=== PATIENT | female | born 1965 | race Caucasian/White ===

== ENCOUNTER 2017-02-11 12:38 | Day surgery (SDC) | payer OTHER ==
[2017-02-11 13:19] LABS: HEMOGLOBIN 16.3 gm/dl (12.3-15.3); RED BLOOD COUNT 5.42 M/UL (4.00-5.10); WHITE BLOOD COUNT 9.8 K/UL (4.5-11.0)
[2017-02-11] MEDS ORDERED: LAMICTAL200 MG PO (13:28)
[2017-02-11] MEDS ORDERED: TOPAMAX50 MG PO (13:28)
[2017-02-11 13:36] LABS: BUN/CREATININE RATIO 16 (0-10)
[2017-02-11] MEDS ORDERED: PERCOCET 10-321 EACH PO (17:08)
== END 2017-02-11 18:00 | disposition home or self-care (01) ==
LOC: OR 12:38
PROVIDERS: Orthopaedic Surgery
PROC: 0PSJ04Z Reposition Left Radius with Internal Fixation Device, Open Approach (ICD-10-PCS; principal; 2017-02-11 15:15)
DX: S52.572A Other intraarticular fracture of lower end of left radius, initial encounter for closed fracture (principal); G40.409 Other generalized epilepsy and epileptic syndromes, not intractable, without status epilepticus; J45.909 Unspecified asthma, uncomplicated; F17.210 Nicotine dependence, cigarettes, uncomplicated; W13.9XXA Fall from, out of or through building, not otherwise specified, initial encounter
CPT/HCPCS: 36415; 71020; 73110; 76000; 80048; 85025; 93005; C1713; J0690; J2250; J2795; J3010; J7120